=== PATIENT | male | born 1985 | race Caucasian/White ===

== ENCOUNTER 2018-05-26 09:50 | Outpatient (CLI) | payer BC ==
--- NOTE | 2018-05-26 11:33 | Diagnostic Imaging Report ---
<p>Your browser does not support iframes.</p> KARL PAZ [facility] [address] [facility]. [address] [place] [address]. [id number] Report Submission Date: May 26, 2018 10:08:00 AM MERCH[employer]ISE EXECUTION LEADER Patient Study Name: MARY TYSON Date: May 26, 2018 9:55:03 AM MERCH[employer]ISE EXECUTION LEADER Modality Type: DX Gender: M Description: CHEST 2VIEW : 85 Institution: [facility] Physician: KARL PAZ Examination: PA and lateral chest. History: Evaluate lung barnes. Cough Comparison exam: None provided. Findings: PA and lateral views of the chest demonstrates a normal cardiac and mediastinal silhouette. No focal infiltrate. No blunting of the costophrenic margins. Osseous structures are appropriate for age. Impression: No acute pulmonary process. Electronically signed on May 26, 2018 10:08:00 AM MERCHANDISE EXECUTION LEADER by: Sameer ROTH
== END 2018-05-26 09:53 ==
LOC: RAD 09:50
PROVIDERS: ATTEND Family Medicine
DX: R76.11 Nonspecific reaction to tuberculin skin test without active tuberculosis (principal)
CPT/HCPCS: 71046